=== PATIENT | male | born 1980 | race Caucasian/White ===

== ENCOUNTER 2020-09-16 16:01 | Emergency (ER) | payer OTHER ==
--- NOTE | 2020-09-16 16:31 | ER Document Report ---
ED Oral Problem - General Chief Complaint: Lip Swelling Stated Complaint: FACE/LIP SWELLING Time Seen by Provider: 09/16/20 16:13 Notes: Patient is a 40-year-old male presents emergency department with a chief complaint of oral swelling and lower lip swelling. Patient states that he tested positive for COVID-19. This was 3 days ago. Patient had a fever of 102 at home last night. He had not taken any ibuprofen or Tylenol. EMS went to his house and they advised he take some. He has been taking these medications [id number]. Denies any difficulty breathing, difficulty swallowing, or any other symptoms. - Related Data Allergies/Adverse Reactions: No Known Allergies Allergy (Verified 09/16/20 16:12) Past Medical History - General Information source: Patient - Social History Smoking Status: Never Smoker Family History: Reviewed & Not Pertinent Patient has homicidal ideation: No Review of Systems - Review of Systems Notes: REVIEW OF SYSTEMS: CONSTITUTIONAL : See HPI. EENT: Denies eye, ear, throat, discharge, or symptoms. See HPI. CARDIOVASCULAR: Denies chest pain. RESPIRATORY: Denies shortness of breath, cough, congestion, difficulty breathing, or wheezing. GASTROINTESTINAL: Denies nausea, vomiting, and diarrhea. Denies abdominal pain. Denies constipation. GENITOURINARY: Denies difficulty urinating, burning, blood in urine, urgency or frequency. MUSCULOSKELETAL: Denies neck and back pain. Denies joint pain or swelling. SKIN: Denies rash, itchiness, or lesions HEMATOLOGIC : Denies easy bruising or bleeding. LYMPHATIC: Denies swollen, painful, enlarged glands. NEUROLOGICAL: Denies no numbness or tingling denies weakness. Denies headache. Denies altered mental status. Denies alteration in speech. PSYCHIATRIC: Denies stress, anxiety, alteration in sleep patterns, or depression. All other systems reviewed and negative. Physical Exam - Vital signs Vitals: Temp Pulse Resp BP Pulse Ox 98.3 F 95 20 121/68 96 09/16/20 16:31 09/16/20 16:31 09/16/20 16:31 09/16/20 16:31 09/16/20 16:31 - Notes Notes: PHYSICAL EXAMINATION: GENERAL: Appears well, healthy, well-nourished, no acute distress. HEAD: Normocephalic, atraumatic. EYES: PERRL, conjunctiva normal, all extraocular movements intact, sclera nonicteric ENT: Excoriated mucous membranes at lower lip. Small amount of bleeding noted. NECK: Supple, no noticeable swelling, redness, rash. Normal range of motion. LUNGS: Equal breath sounds bilaterally and clear to auscultation. No wheezes rales or rhonchi. CARDIOVASCULAR: S1-S2, regular rate, regular rhythm. Radial pulses 2+, normal. ABDOMEN: Normoactive bowel sounds. Soft, nontender, no guarding, no rebound tenderness, and no masses palpated. EXTREMITIES: Normal strength and range of motion, no pitting or edema. No cyanosis. NEUROLOGICAL: Moves all extremities upon command. Strength 5/5 in all extremities. PSYCH: Normal mood, normal affect. SKIN: Warm, dry. No rash, lesions, ulcerations noted. Normal skin turgor. Course - Re-evaluation Re-evalutation: 09/16/20 16:43 I spoke with the patient's father, Silvio Alvarado. He states that the patient is developmentally delayed. Father states that the patient has been eating a lot of crackers. Patient denies any difficulty breathing. Airway is patent. We will give the patient a dose of Pepcid, Decadron, and Augmentin. Will see how he feels afterwards. 09/16/20 18:29 And has been about 30 to 45 minutes after the patient received Pepcid and Augmentin. He states that he does feel better. We will also give him an albuterol inhaler and spacer. Advised him to take 1 puff every 4-6 hours. He is in agreement with this plan. Follow-up precautions were given. Verbal discharge instructions were given to the patient. They verbalized understanding. They are stable for discharge. - Vital Signs Vital signs: Temp Pulse Resp BP Pulse Ox 97.4 F 94 16 123/69 96 09/16/20 18:50 09/16/20 18:50 09/16/20 18:50 09/16/20 18:50 09/16/20 18:50 Discharge - Discharge Clinical Impression: Lip swelling, COVID-19 virus infection Condition: Stable Disposition: HOME, SELF-CARE Additional Instructions: You were seen today in the emergency department for swelling of your lip. Take your antibiotics as prescribed. Please continue to stay in quarantine as directed by the health department. Also take Pepcid to help with the swelling. You are also sent home with an albuterol inhaler with a spacer. You can take 1- 2 puff every 4-6 hours as needed for shortness of breath or wheezing. Continue Tylenol and ibuprofen for pain relief and fever. Make sure you are staying well-hydrated and drink plenty of water. Prescriptions: Amoxicillin/Potassium Clav [Augmentin 875-125 Tablet] 1 tab PO BID #14 tab Famotidine [Pepcid 20 mg Tablet] 20 mg PO BID #30 tablet Ondansetron [Zofran Odt 4 mg Tablet] 1 - 2 tab PO Q4H PRN #15 tab.rapdis PRN Reason: For Nausea/Vomiting
[2020-09-16] MEDS ORDERED: FAMOTIDINE 20 MG TABLET PO ONE (16:38)
[2020-09-16] MEDS ORDERED: AMOXICILLIN TR/POT CLAVULANATE 875-125 MG TAB PO ONE (16:39)
[2020-09-16] MEDS ORDERED: DEXAMETHASONE SOD PHOS INJ 10 MG/1 ML VIAL IM ONE (16:42)
[2020-09-16] MEDS ORDERED: DEXAMETHASONE SOD PHOSPHATE INJ 4 MG/1 ML VIAL ONE (17:55)
[2020-09-16] MEDS ORDERED: ALBUTEROL SULFATE HFA (90 MCG/PUFF) 8 GM MDI (1 MDI/ER DISP) IH PRN (18:30)
[2020-09-16 18:57] VITALS: BP 123/69
== END 2020-09-16 18:55 | disposition home or self-care (01) ==
LOC: ER 16:01
DX: U07.1 COVID-19 (principal); R22.9 Localized swelling, mass and lump, unspecified; R50.9 Fever, unspecified
CPT/HCPCS: 99284; 96372; J1100; J3490 ×2